=== PATIENT | female | born 1940 | race Caucasian/White ===

== ENCOUNTER 2016-12-21 10:06 | Outpatient (CLI) | payer OTHER ==
[~2016-12-21 10:06] MED LIST: ALBUTEROL SUL0.083 % IN; ATROVENT0.03 %; AZITHROMYCIN500 MG PO; CELEXA10 M1; CLONAZEPAM1 MG PO; LISINOPRIL10 MG PO; MULTIPLE VITAMIN PO; NEURONTIN100 MG PO; NEURONTIN300 MG PO; NORCO1 TA1 PO; OMEPRAZOLE20 MG; PREDNISONE10 MG PO; RITUXAN10 MG/ML; TRAZODONE HCL50 MG PO; [UNRECOGNIZED DRUG - OTHER]
--- NOTE | 2016-12-21 11:12 | DIAGNOSTIC IMAGING REPORT ---
PROCEDURE: CT SOFT TISSUE NECK WITH CONT INDICATION: LYMPHOMA, follow-up TECHNIQUE: 75 ml of Isovue 300 injected intravenously and axial images were obtained from the skull base through the upper mediastinum with sagittal and coronal reformations. In addition, angled axial oblique images were obtained ( avoiding dental hardware). COMPARISON: CT soft tissue neck 06/19/2013 FINDINGS: Slight interval progression of small digastric and jugular lymph nodes (5 mm short axis). No change in the small left supraclavicular lymph node. The parotid and submandibular glands are normal. Tiny hypoenhancing thyroid lesions. Normal airway. Minor left carotid bifurcation atherosclerosis. Mild bilateral maxillary sinus mucosal thickening. Mastoids are clear. Moderate degenerative changes of the spine. IMPRESSION: 1. Slight progression of cervical lymph nodes (largest 5 mm short axis). All CT scans at this facility use dose modulation, iterative reconstruction, and/or weight-based dosing when appropriate to reduce radiation dose to as low as reasonably achievable.
--- NOTE | 2016-12-21 11:35 | DIAGNOSTIC IMAGING REPORT ---
PROCEDURE: CT THORAX ABD PELVIS W/CONT INDICATION: LYMPHOMA, follow-up TECHNIQUE: 75 ml of Isovue 300 injected intravenously and axial images were obtained of the entire thorax, abdomen, and pelvis with sagittal and coronal reformations. COMPARISON: CT chest/abdomen/pelvis 12/19/2015 FINDINGS: THORAX: Stable small mediastinal lymph nodes (largest 7 mm short axis). Minor bilateral upper lobe ground-glass opacities. No effusion. Mild atherosclerosis of the aorta and coronaries. Calcified mitral annulus. Mild cardiomegaly stable pericardial thickening. Mild degenerative changes of the spine. ABDOMEN: No adenopathy. Cholecystectomy and splenectomy. Splenule present. Liver, pancreas, adrenal glands and right kidney are normal. Stable tiny left renal cyst. Severe atherosclerosis of the aorta. Stable 2.0 cm fat containing supraumbilical ventral hernia. Nonspecific bowel gas pattern. No suspicious osseous lesions. PELVIS: No adenopathy. Normal appendix. Mild sigmoid diverticulosis. Hysterectomy. No change in the 2 cm left lower pelvic soft tissue mass. No inflammatory changes or free fluid. No suspicious osseous lesions. IMPRESSION: 1. No evidence of adenopathy. 2. Mild bilateral upper lobe ground-glass opacities which may represent pneumonitis 3. Cholecystectomy, splenectomy and hysterectomy 4. Stable 2 cm left pelvic soft tissue mass 5. Mild diverticulosis 6. Results called to Dr. Patterson (voicemail) All CT scans at this facility use dose modulation, iterative reconstruction, and/or weight-based dosing when appropriate to reduce radiation dose to as low as reasonably achievable.
== END 2016-12-21 23:00 ==
LOC: CT SRH 10:06
DX: C85.90 Non-Hodgkin lymphoma, unspecified, unspecified site (principal)